=== PATIENT | female | born 2000 | race American Indian/Alaskan Native ===

== ENCOUNTER 2020-08-04 10:11 | Emergency (ER) | payer SELFPAY ==
[2020-08-04 10:25] VITALS: BP 117/68
--- NOTE | 2020-08-04 10:35 | Emergency Department Report ---
Chief Complaint: Urogenital-Female Stated Complaint: YEAST INFECTION/DIABETES TESTING Time Seen by Provider: 08/04/20 10:30 - HPI History of Present Illness: Patient is a 19-year-old female presents emergency room with a "yeast infection". She states for the last couple of days she has had a thick white cottage cheeselike vaginal discharge. She denies any dysuria, pelvic pain, abdominal pain, back pain, vaginal blisters or lesions, fever, nausea, vomiting, diarrhea. No past medical history. No allergies to medications. Patient is also requesting HIV testing. She has not taken anything for her symptoms. Vitals are normal On exam: Non toxic appearing, no acute distress atraumatic, normocephalic normal appearance of the eyes, PERRL, EOMI, no periorbital edema or ecchymosis moist mucus membranes regular heart rate and rhythm, no gallops, no rubs, no murmurs breath sounds are clear bilaterally, no w/r/r No abdominal tenderness to exam, no distention, abdomen is soft, nontender, no guarding, no rebound, no rigidity, normal bowel sounds, no peritoneal signs A&O x4, no focal neuro deficit skin is warm, dry, intact Patient is presenting for possible yeast infection She denies any other symptoms She is also requesting routine HIV testing but is not having any constitutional like symptoms advised pt please use monistat 7 day over the counter, please do the full 7 days and follow the instructions on the packaging. follow up with your primary care doctor, field aide, or a clinic. return to the emergency room for any new or worsening symptoms pt given appropriate resources discussed strict return precautions medical screening exam performed and there is no threat to life or limb at this time - Exam Vital Signs: Vital Signs 08/04/20 10:22 Temperature 98.9 F Pulse Rate 83 Respiratory 20 Rate Blood Pressure 117/68 O2 Sat by Pulse 97 Oximetry MSE screening note: Focused history and physical exam performed. Due to findings the following was ordered: ED Disposition for MSE Clinical Impression: Encounter for medical screening examination Disposition: Z MED SCREENING EXAM-LEFT Is pt being admited?: No Does the pt Need Aspirin: No Condition: Stable Additional Instructions: please use monistat 7 day over the counter, please do the full 7 days and follow the instructions on the packaging. follow up with your primary care doctor, field aide, or a clinic. return to the emergency room for any new or worsening symptoms. walk in clinic: [facility] Address: [address] [place] [address], [place] [address] Referrals: [facility] [Provider Group] - 2-3 Days [facility] [Outside] - 2-3 Days your, primary care doctor [Other] - 2-3 Days Time of Disposition: 10:33 Print Language: GREENLANDIC
== END 2020-08-04 10:35 | disposition left against medical advice (07) ==
LOC: ED 10:11
DX: Z13.9 Encounter for screening, unspecified (principal); Z53.21 Procedure and treatment not carried out due to patient leaving prior to being seen by health care provider